=== PATIENT | female | born 1955 | race Caucasian/White ===

== ENCOUNTER 2016-05-05 16:24 | Emergency (ER) | payer OTHER | END 2016-05-05 18:22 | disposition home or self-care (01) | LOC: ER1 16:24 | DX: M54.6 Pain in thoracic spine (principal); R07.81 Pleurodynia; R05 Cough; F17.200 Nicotine dependence, unspecified, uncomplicated; J44.9 Chronic obstructive pulmonary disease, unspecified | CPT/HCPCS: 99283 ==

== ENCOUNTER → 2016-05-11 | Outpatient (CLI) | payer OTHER | LOC: KOH-I 11:05 | DX: R06.02 Shortness of breath (principal) | CPT/HCPCS: 71020 ==

== ENCOUNTER → 2016-07-17 | Outpatient (CLI) | payer OTHER | LOC: RT 09:54 | DX: I25.10 Atherosclerotic heart disease of native coronary artery without angina pectoris (principal) | CPT/HCPCS: 93005 ==

== ENCOUNTER → 2020-05-04 | Outpatient (CLI) | payer OTHER | LOC: CT 08:16 | DX: R14.0 Abdominal distension (gaseous) (principal); K76.0 Fatty (change of) liver, not elsewhere classified; K86.1 Other chronic pancreatitis; K59.00 Constipation, unspecified | CPT/HCPCS: 36415; 74160; 82565; 84520; Q9967 ==

== ENCOUNTER → 2021-09-01 | Outpatient (CLI) | payer OTHER ==
[~2021-09-01] MED LIST: ABILIFY10 MG PO; ALEVE220 MG PO; BENTYL 20MG TAB20 MG PO; FML 0.1% OP SUSP5 ML EYELF; GABAPENTIN600 MG PO; PHENERGAN 25 MG25 M1 PO; PHENERGAN25 MG/1 ML PO; PROTONIX 40 MG40 M1 PO; PROVENTIL HFA6.7 GM INH; SYNTHROID175 MCG PO; VOLTAREN ARTHRI20 GM TOP; WELLBUTRIN SR100 MG PO
[2021-09-01 11:13] LABS: RED BLOOD COUNT 4.8 M/UL (4.00-5.10); WHITE BLOOD COUNT 7.1 K/UL (4.5-11.0)
[2021-09-01 11:14] LABS: BUN/CREATININE RATIO 32 (0-10)
== END ==
LOC: EDSTATUS 09:00 → OPSV2 09:00
PROVIDERS: Orthopaedic Surgery
DX: Z01.818 Encounter for other preprocedural examination (principal); M17.12 Unilateral primary osteoarthritis, left knee
CPT/HCPCS: 36415; 71046; 80048; 85027; 93005

== ENCOUNTER → 2021-09-13 | Outpatient (CLI) | payer OTHER ==
[~2021-09-13] MED LIST changes: +ASPIR-TRIN325 MG PO; +CYCLOBENZAPRINE10 MG PO; +ENDOCET 7.5-321 EACH PO; +PAXIL40 MG PO; +TYLENOL325 MG PO
[2021-09-13 10:41] LABS: BUN/CREATININE RATIO 26 (0-10)
== END ==
LOC: LAB 08:56
PROVIDERS: Orthopaedic Surgery
DX: Z01.812 Encounter for preprocedural laboratory examination (principal); M17.12 Unilateral primary osteoarthritis, left knee
CPT/HCPCS: 36415; 80048; 86850; 86900; 86901

== ENCOUNTER → 2021-09-14 | Day surgery (SDC) | payer OTHER ==
[~2021-09-14] VITALS: Ht 160 cm; Wt 81.2 kg
== END | disposition home or self-care (01) ==
LOC: OR 05:22
DX: M17.12 Unilateral primary osteoarthritis, left knee (principal); M94.262 Chondromalacia, left knee; E03.9 Hypothyroidism, unspecified; K21.9 Gastro-esophageal reflux disease without esophagitis; F41.9 Anxiety disorder, unspecified; F32.A Depression, unspecified; F17.210 Nicotine dependence, cigarettes, uncomplicated; Z79.899 Other long term (current) drug therapy
CPT/HCPCS: 73560; 97116; 97161; 97165; C1713; C1776; J0690; J1100; J1170; J1885; J2001; J2250; J2274; J2405; J2704; J2710; J3010; J3370; J3475